=== PATIENT | female | born 1985 | race Two or more races ===

== ENCOUNTER 2019-07-14 15:37 | Emergency (ER) | payer MEDICAID ==
[~2019-07-14] VITALS: Ht 154.9 cm; Wt 108.9 kg
[2019-07-14 15:40] VITALS: BP 152/71
[2019-07-14] MEDS ORDERED: cefTRIAXone SOD 1,000 MG VL IM ONE ×2 (17:45)
== END 2019-07-14 17:51 | disposition home or self-care (01) ==
LOC: ER 15:47
DX: H66.92 Otitis media, unspecified, left ear (principal)
CPT/HCPCS: 96372; 99283; J0696